=== PATIENT | male | born 1955 | race Caucasian/White ===

== ENCOUNTER 2017-11-23 19:45 | Inpatient (IN) | payer MEDICAID ==
[~2017-11-23] VITALS: Ht 188 cm; Wt 70.0 kg
[~2017-11-23 19:45] MED LIST: ALBUTEROL0.09 MG/A2 IH; DIOVAN80 MG PO
[2017-11-23 20:13] LABS: BASOPHIL % 0.6 % (0-2); PLATELET COUNT 178 x10^3mcL (130-400)
[2017-11-23 20:16] LABS: RED CELL DISTRIBUTION WIDTH 14.6 % (11.5-14.5)
[2017-11-23 20:49] LABS: ALBUMIN 3.4 g/dL (3.4-5.0); ALKALINE PHOSPHATASE 135 U/L (46-116); ALT/SGPT 26 U/L (16-63); AST/SGOT 106 U/L (15-37); BILIRUBIN TOTAL 1.54 mg/dL (0.20-1.00); CALCIUM 8.8 mg/dL (8.5-10.1); CARBON DIOXIDE 25.9 mmol/L (21-32); CHLORIDE SERUM 83 mmol/L (98-107); GFR1 > 60 mL/min; GLUCOSE SERUM 112 mg/dL (74-106); MAGNESIUM 2.1 mg/dL (1.8-2.4); POTASSIUM SERUM 3.5 mmol/L (3.5-5.1); TOTAL PROTEIN, SERUM 7.3 g/dL (6.4-8.2)
[2017-11-23 20:52] LABS: SODIUM SERUM 122 mmol/L (136-145)
[2017-11-24 00:59] LABS: microscopic required? YES; urine erythrocyte 3+ (NEGATIVE)
[2017-11-24 01:08] LABS: AMPHETAMINE QUAL UR NONE DETECTED (See below)
[2017-11-24 01:12] LABS: PHOSPHOROUS 2.6 mg/dL (2.5-4.9)
[2017-11-24 01:14] VITALS: BP 121/68
[2017-11-24 01:14] LABS: T3 TOTAL 0.59 ng/mL
[2017-11-24 01:15] LABS: CHOLESTEROL/HDL RATIO 2.3
[2017-11-24 01:18] VITALS: Ht 188 cm; Wt 70.0 kg
[2017-11-24 01:20] LABS: FREE T4 1.26 ng/dL (0.76-1.46); FREE THYROXINE INDEX 2.2 ug/dL (1.4-4.5); T4(THYROXINE) 5.9 ug/dL (4.7-13.3)
[2017-11-24 02:15] LABS: OSMOLALITY SERUM 315 mOsm/kg (278-298)
[2017-11-24 02:16] LABS: CALCIUM 7.4 mg/dL (8.5-10.1); CARBON DIOXIDE 22.8 mmol/L (21-32); CHLORIDE SERUM 92 mmol/L (98-107); CREATININE SERUM 0.8 mg/dL (0.7-1.3); GFR1 > 60 mL/min; GLUCOSE SERUM 84 mg/dL (74-106); SODIUM SERUM 127 mmol/L (136-145)
[2017-11-24 02:19] LABS: POTASSIUM SERUM 2.7 mmol/L (3.5-5.1)
[2017-11-24 05:13] VITALS: BP 123/67
[2017-11-24 06:12] LABS: BASOPHIL % 0.3 % (0-2)
[2017-11-24 06:29] LABS: CALCIUM 7.7 mg/dL (8.5-10.1); CARBON DIOXIDE 20.7 mmol/L (21-32); CHLORIDE SERUM 94 mmol/L (98-107); CREATININE SERUM 0.8 mg/dL (0.7-1.3); GFR1 > 60 mL/min; GLUCOSE SERUM 73 mg/dL (74-106); SODIUM SERUM 130 mmol/L (136-145)
[2017-11-24 06:34] LABS: POTASSIUM SERUM 2.7 mmol/L (3.5-5.1)
[2017-11-24 07:26] LABS: PLATELET COUNT 116 x10^3mcL (130-400); RED CELL DISTRIBUTION WIDTH 14.6 % (11.5-14.5)
[2017-11-24 13:58] VITALS: BP 130/76
[2017-11-24 14:35] LABS: CALCIUM 7.6 mg/dL (8.5-10.1); CARBON DIOXIDE 23.1 mmol/L (21-32); CHLORIDE SERUM 97 mmol/L (98-107); GFR1 > 60 mL/min; GLUCOSE SERUM 103 mg/dL (74-106); POTASSIUM SERUM 3.7 mmol/L (3.5-5.1); SODIUM SERUM 130 mmol/L (136-145)
== END 2017-11-24 17:23 | disposition left against medical advice (07) | DRG 207 ==
LOC: ED 19:45 → DU 23:54
PROVIDERS: Emergency Medicine; Family Medicine
DX: I95.9 Hypotension, unspecified (principal); G92 Toxic encephalopathy; E87.8 Other disorders of electrolyte and fluid balance, not elsewhere classified; E87.1 Hypo-osmolality and hyponatremia; I48.91 Unspecified atrial fibrillation; F10.229 Alcohol dependence with intoxication, unspecified; D50.9 Iron deficiency anemia, unspecified; J44.9 Chronic obstructive pulmonary disease, unspecified; R31.9 Hematuria, unspecified; F12.90 Cannabis use, unspecified, uncomplicated; Z53.29 Procedure and treatment not carried out because of patient's decision for other reasons; Y90.1 Blood alcohol level of 20-39 mg/100 ml; Z68.1 Body mass index [BMI] 19.9 or less, adult; R29.6 Repeated falls; F39 Unspecified mood [affective] disorder
CPT/HCPCS: 83880; 84439; G0480; J2060; J2250; J3411; J3475; J3480; J3490; J7030; Q0092

== ENCOUNTER 2019-03-08 12:14 | Emergency (ER) | payer OTHER ==
[~2019-03-08] VITALS: Ht 188 cm; Wt 68.0 kg
[2019-03-08 12:21] VITALS: Ht 188 cm; Wt 68.0 kg
[2019-03-08 12:56] LABS: BASOPHIL % 1.2 % (0-2); PLATELET COUNT 196 x10^3mcL (130-400); RED CELL DISTRIBUTION WIDTH 13.9 % (11.5-14.5)
[2019-03-08 13:04] LABS: CARBON DIOXIDE 26.3 mmol/L (21-32); CHLORIDE SERUM 105 mmol/L (98-107); CREATININE SERUM 1.1 mg/dL (0.7-1.3); GFR1 > 60 mL/min; GLUCOSE SERUM 109 mg/dL (74-106); POTASSIUM SERUM 3.7 mmol/L (3.5-5.1); SODIUM SERUM 142 mmol/L (136-145)
[2019-03-08 13:09] LABS: ALBUMIN 3.9 g/dL (3.4-5.0); ALKALINE PHOSPHATASE 117 U/L (46-116); ALT/SGPT 19 U/L (16-63); AST/SGOT 28 U/L (15-37); BILIRUBIN TOTAL 1.1 mg/dL (0.20-1.00); TOTAL PROTEIN, SERUM 7.9 g/dL (6.4-8.2)
[2019-03-08 15:47] VITALS: BP 121/81
== END 2019-03-08 15:47 | disposition home or self-care (01) ==
LOC: ED 12:14
PROVIDERS: Emergency Medicine
DX: J45.901 Unspecified asthma with (acute) exacerbation (principal); I11.0 Hypertensive heart disease with heart failure; I50.9 Heart failure, unspecified
CPT/HCPCS: 83880; J2930; J7613; J7620; Q0092